=== PATIENT | female | born 1960 | race Caucasian/White ===

== ENCOUNTER 2019-11-06 09:58 | Emergency (ER) | payer BC, SELFPAY ==
[2019-11-06 10:04] VITALS: BP 189/114; PULSE 74; RESP 74; TEMP 37.2; O2SAT 98; BMI 28.7
--- NOTE | 2019-11-06 10:13 | XRR_ITS ---
PROCEDURE INFORMATION: Exam: XR Chest, 1 View Exam date and time: 11/06/2019 10:41 AM Age: 59 years old Clinical indication: Cough and dyspnea and fever; Additional info: Dyspnea/cough/fever TECHNIQUE: Imaging protocol: XR of the chest Views: 1 view. COMPARISON: No relevant prior studies available. FINDINGS: Lungs: Lungs are well aerated without a focal area of consolidation. Pleural space: Unremarkable. No pleural effusion. No pneumothorax. Heart/Mediastinum: The cardiac silhouette appears enlarged, some of which is magnification related to the AP projection. Bones/joints: Prior trauma right clavicle XR/XR chest 1V portable [id number] IMPRESSION: Lungs are well aerated without a focal area of consolidation.
--- NOTE | 2019-11-06 10:13 | ECG_ITS ---
[facility] Test Date: 2019-11-06 Pat Name: Stephanie Rosa Department: Room: Gender: Female Counterperson: : 1960 Requested By: Tone Bolden Order Number: [id number] Shasha MD: Anna Rosenberg M.D. Measurements Intervals [place] Rate: 66 P: 69 UT: 163 QRS: 68 QRSD: 82 T: 69 QT: 425 QTc: 446 Interpretive Statements SINUS RHYTHM No previous ECG available for comparison Electronically Signed On 11-06-2019 19:41:57 CDT by Anna Rosenberg M.D. [id number]
--- NOTE | 2019-11-06 10:14 | ED_ITS ---
HPI - General Adult General: Chief complaint: General Medical Stated complaint: sick since 10/27 Time Seen by Provider: 11/06/19 10:05 History of Present Illness: HPI narrative: 51-year-old female presents emergency room with complaint of cough myalgias headache she does not have any GI symptoms at all. She has had this for the last 9 days. She has been seen twice was started on antibiotics and steroids. She continues to actually worsen rather than improve. She was seen again in the last couple of days and they increased her steroids and change her antibiotics at both visits she was tested with an antibody test for COVID which was negative. Onset (ago): week(s) Location: chest Radiation: non-radiation Severity: moderate Relieving factors: none Associated symptoms: Reports cough, decreased appetite, dyspnea, fevers/chills, malaise, nausea, short of breath and weakness; Deny chest pain, confusion, diaphoresis, headache(s) or rash Treatments prior to arrival: none Review of Systems Const: Reports: malaise; Denies: diaphoresis ENMT: Denies: throat pain, ear or mastoid pain, nasal discharge or nasal congestion Card: Denies: chest pain Resp: Reports: dyspnea GI: Reports: nausea : Denies: flank pain, difficulty voiding, dysuria, urinary frequency or urinary urgency Skin/Breast: Denies: rash or pruritus Neuro: Denies: headache(s) or confusion PFS ED PFSH: Medical History (Updated 11/06/19 @ 12:09 by Tone Longo DO) Hypertension Physical Exam Const: COMMON NORMALS: no acute distress GENERAL APPEARANCE: cooperative and comfortable ORIENTATION/CONSCIOUSNESS: Yes awake, Yes oriented to person, Yes oriented to place and Yes oriented to time HENMT: COMMON NORMALS: normocephalic, atraumatic and hearing grossly normal bilaterally HEAD & SCALP: normocephalic and atraumatic Eye: COMMON NORMALS: Equal, round and reactive pupils present, EOMs intact bilaterally, conjunctivae normal and no scleral icterus CONJUNCTIVA: Yes conjunctivae normal PUPIL: Yes Equal, round and reactive pupils present Neck/C-Spine: COMMON NORMALS: no JVD Resp: AUSCULTATION: rhonchi (Bases bilaterally) and wheezes Cardio: COMMON NORMALS: no JVD, regular rate, regular rhythm and No murmurs present (Cardio) RATE: regular rate RHYTHM: regular rhythm GI: COMMON NORMALS: Soft to palpation and No hepatosplenomegaly present AUSCULTATION: Yes normoactive bowel sounds PALPATION: Yes Soft to palpation, No Tenderness to palpation present (GI), No Guarding due to palpation present (GI) and Yes No hepatosplenomegaly present Extremity: COMMON NORMALS: normal to inspection, capillary refill normal, no clubbing, cyanosis or edema, no calf tenderness and no pedal edema Neuro: SENSORIUM/ORIENTATION: Yes oriented to person, Yes oriented to place and Yes oriented to time Skin: COMMON NORMALS: no rashes or lesions noted GENERAL SKIN EXAM: no rashes or lesions noted Course Vital Signs: Vital signs: Vital Signs Temperature 98.9 F 11/06/19 10:04 Pulse Rate 70 11/06/19 12:30 Respiratory Rate 14 11/06/19 12:30 Blood Pressure 140/97 11/06/19 12:30 Pulse Oximetry 95 11/06/19 12:30 MDM - General Adult MDM Narrative: Medical decision making narrative: Strongly suspect patient has COVID-19 will go ahead and discharge her recommend continued quarantine at home until the results are available. If she gets worse she should return immediately Lab Data: Labs: Lab Results 11/06/19 11/06/19 11/06/19 Range/Units 11:09 11:09 11:09 WBC (4.0-10.0) 10^3/ uL RBC (4.1-5.3) 10^6/u L Hgb (11.5-15.3) g/dL Hct (37.0-47.0) % MCV (81-99) fL MCH (28.0-34.0) pg MCHC (30.0-36.0) g/dL RDW (12.1-15.1) % Plt Count (130-400) 10^3/c mm MPV (7.4-10.4) fL Neut % (Auto) % Lymph % (Auto) % Elbert % (Auto) % Eos % (Auto) % Baso % (Auto) % Neut # (Auto) (1.8-7.7) 10^3/u L Lymph # (Auto) (0.8-4.8) 10^3/u L Elbert # (Auto) (0.2-0.9) 10^3/u L Eos # (Auto) (0.0-0.8) 10^3/u L Baso # (Auto) (0.0-0.1) 10^3/u L Nucleated RBC % (a uto) % Nucleated RBCs # /100WBC Fibrinogen 371 (174-498) mg/dL D-Dimer 1.66 H (0-0.59) ug/mIFE U Sodium 136 (136-145) mmol/L Potassium 4.0 (3.5-5.1) mmol/L Chloride 97 L (98-107) mmol/L Carbon Dioxide 27 (22-29) mmol/L Anion Gap 16.0 (5-19) BUN 21 H (6-20) mg/dL Creatinine 0.8 (0.5-0.9) mg/dL GFR Calculation 73.7 L (90-130) mL/min Glucose 173 H (65-115) mg/dL Calculated Osmolal ity 283 L (285-295) mOsm/k g Lactic Acid 1.4 (0.5-2.2) mmol/L Calcium 9.8 (8.5-10.5) mg/dL Total Bilirubin 1.4 H (0.15-1.2) mg/dL AST 53 H (0-32) U/L ALT 74 H (0-33) U/L Alkaline Phosphata se 87 (35-105) IU/L Lactate Dehydrogen ase 228 H (135-214) U/L Total Protein 7.1 (6.6-8.7) g/dL Albumin 4.5 (3.5-5.2) g/dL Globulin 2.6 (1.3-4.6) g/dL SARS-CoV-2 RNA (RT -PCR) (NOT DETECTED) 11/06/19 11/06/19 Range/Units 11:09 11:09 WBC 7.1 (4.0-10.0) 10^3/ uL RBC 4.01 L (4.1-5.3) 10^6/u L Hgb 13.1 (11.5-15.3) g/dL Hct 39.6 (37.0-47.0) % MCV 98.8 (81-99) fL MCH 32.7 (28.0-34.0) pg MCHC 33.1 (30.0-36.0) g/dL RDW 12.2 (12.1-15.1) % Plt Count 212 (130-400) 10^3/c mm MPV 10.6 H (7.4-10.4) fL Neut % (Auto) 85.4 % Lymph % (Auto) 11.8 % Elbert % (Auto) 1.4 % Eos % (Auto) 0.0 % Baso % (Auto) 0.3 % Neut # (Auto) 6.05 (1.8-7.7) 10^3/u L Lymph # (Auto) 0.8 (0.8-4.8) 10^3/u L Elbert # (Auto) 0.1 L (0.2-0.9) 10^3/u L Eos # (Auto) 0.0 (0.0-0.8) 10^3/u L Baso # (Auto) 0.0 (0.0-0.1) 10^3/u L Nucleated RBC % (a uto) 0 % Nucleated RBCs # 0.0 /100WBC Fibrinogen (174-498) mg/dL D-Dimer (0-0.59) ug/mIFE U Sodium (136-145) mmol/L Potassium (3.5-5.1) mmol/L Chloride (98-107) mmol/L Carbon Dioxide (22-29) mmol/L Anion Gap (5-19) BUN (6-20) mg/dL Creatinine (0.5-0.9) mg/dL GFR Calculation (90-130) mL/min Glucose (65-115) mg/dL Calculated Osmolal ity (285-295) mOsm/k g Lactic Acid (0.5-2.2) mmol/L Calcium (8.5-10.5) mg/dL Total Bilirubin (0.15-1.2) mg/dL AST (0-32) U/L ALT (0-33) U/L Alkaline Phosphata se (35-105) IU/L Lactate Dehydrogen ase (135-214) U/L Total Protein (6.6-8.7) g/dL Albumin (3.5-5.2) g/dL Globulin (1.3-4.6) g/dL SARS-CoV-2 RNA (RT -PCR) Not detected (NOT DETECTED) Discharge Plan Discharge Patient Disposition: Home Clinical Impression: Suspected COVID-19 virus infection Condition: Stable Prescriptions: No Action Multiple Vitamins Tablet 1 tab PO DAILY RF: 0 levothyroxine 175 mcg tablet See Rx Instructions .ROUTE .COMPLEX RF: 0 doxycycline hyclate 100 mg capsule 100 mg PO BID RF: 0 azithromycin 250 mg tablet See Rx Instructions .ROUTE .COMPLEX RF: 0 metoprolol succinate 50 mg tablet extended release 24 hr 50 mg PO DAILY RF: 0 prednisone 20 mg tablet See Rx Instructions .ROUTE .COMPLEX RF: 0 levothyroxine 150 mcg tablet See Rx Instructions .ROUTE .COMPLEX RF: 0 lisinopril-hydrochlorothiazide 20-25 mg tablet 1 tab PO DAILY RF: 0 fluoxetine 20 mg capsule 60 mg PO DAILY RF: 0 naproxen 500 mg tablet 500 mg PO BID PRN (Reason: Pain) RF: 0 Mucinex 1 tab PO PRN RF: 0 Tussin DM 10 ml PO PRN RF: 0 Discharge Orders: Discharge Order (Routine); Ordered 11/06/19 Ordered By: Tone Longo Discharge Diet: Usual diet Discharge Activity: Limit activity as instructed Activity Restrictions/Additional Instructions: Tested for COVID-19. The testing will take approximately 48 to 72 hours to result. Recommend that you self quarantine until the results are available continue the previously prescribed antibiotics and steroids. Discharge Date/Time: 11/06/19 12:30 Coding Level of Care Code ED Principal Administrative Clerk for [employer] Fwd Exam Comprehensive
[2019-11-06 11:16] LABS: Basophils % 0.3 %; Hematocrit 39.6 % (37.0-47.0); Hemoglobin 13.1 g/dL (11.5-15.3); Lymphocytes # 0.8 10^3/uL (0.8-4.8); Lymphocytes % 11.8 %; Mean Corpuscular HGB Conc 33.1 g/dL (30.0-36.0); Mean Corpuscular Hemoglobin 32.7 pg (28.0-34.0); Mean Corpuscular Volume 98.8 fL (81-99); Mean Platelet Volume 10.6 fL (7.4-10.4); Monocytes # 0.1 10^3/uL (0.2-0.9); Monocytes % 1.4 %; Neutrophils # 6.05 10^3/uL (1.8-7.7); Neutrophils % 85.4 %; Nucleated Red Blood Cells % 0 %; Platelet Count 212 10^3/cmm (130-400); Red Blood Count 4.01 10^6/uL (4.1-5.3); Red Cell Distribution Width 12.2 % (12.1-15.1); White Blood Count 7.1 10^3/uL (4.0-10.0)
[2019-11-06 11:29] LABS: Fibrinogen 371 mg/dL (174-498)
[2019-11-06 11:30] VITALS: BP 132/102; PULSE 71; RESP 14; O2SAT 95
[2019-11-06 11:32] LABS: D Dimer 1.66 ug/mIFEU (0-0.59)
[2019-11-06 11:33] LABS: Alanine Aminotransferase 74 U/L (0-33); Albumin Level 4.5 g/dL (3.5-5.2); Alkaline Phosphatase 87 IU/L (35-105); Aspartate Amino Transferase 53 U/L (0-32); Blood Urea Nitrogen 21 mg/dL (6-20); Calcium 9.8 mg/dL (8.5-10.5); Carbon Dioxide 27 mmol/L (22-29); Chloride 97 mmol/L (98-107); Globulin 2.6 g/dL (1.3-4.6); Glomerular Filtration Rate 73.7 mL/min (90-130); Glucose 173 mg/dL (65-115); Lactate Dehydrogenase 228 U/L (135-214); Lactic Sepsis W/Reflex 1.4 mmol/L (0.5-2.2); Osmolality Calculated 283 mOsm/kg (285-295); Sodium 136 mmol/L (136-145); Total Bilirubin 1.4 mg/dL (0.15-1.2); Total Protein 7.1 g/dL (6.6-8.7)
[2019-11-06 12:30] VITALS: BP 140/97; PULSE 70; RESP 14; O2SAT 95
[2019-11-07 18:23] LABS: Quest SARS-CoV-2 RNA NOT DETECTED (NOT DETECTED)
--- NOTE | 2019-11-08 08:26 | PC.NURSE ---
Pt notified of negative COVID
== END 2019-11-06 12:30 | disposition home or self-care (01) ==
PROVIDERS: Emergency Provider Family Medicine
DX: R05 Cough (principal); R51 Headache; M79.10 Myalgia, unspecified site; I10 Essential (primary) hypertension
CPT/HCPCS: 12345; 71045; 80053; 83605; 83615; 85025; 85378; 85384; 87040; 87635; 93005; 99282; 99283

== ENCOUNTER 2020-02-22 01:11 | Emergency (ER) | payer SELFPAY ==
[2020-02-22 01:20] VITALS: BP 180/101; PULSE 86; RESP 19; TEMP 36.8; O2SAT 95; BMI 28.7
--- NOTE | 2020-02-22 01:37 | XRR_ITS ---
PROCEDURE INFORMATION: Exam: XR Chest, 1 View Exam date and time: 02/22/2020 1:41 AM Age: 60 years old Clinical indication: Cough TECHNIQUE: Imaging protocol: XR of the chest Views: 1 view. COMPARISON: CR XR chest 1V portable [id number] 11/06/2019 10:42 AM FINDINGS: Lungs: Unremarkable. No consolidation. Pleural space: Unremarkable. No pleural effusion. No pneumothorax. Heart/Mediastinum: Cardiomegaly. Bones/joints: Unremarkable. XR/XR chest 1V portable [id number] IMPRESSION: Cardiomegaly, negative for infiltrate
--- NOTE | 2020-02-22 01:38 | W.ED.SOB ---
HPI - SOB/Dyspnea General: Chief Complaint: Shortness of Breath/Dyspnea Stated Complaint: Cough/SOB,high bp Time Seen by Provider: 02/22/20 01:33 Source: patient Mode of arrival: ambulatory Limitations: no limitations History of Present Illness: HPI Narrative: Stephanie is a very nice 60-year-old female who comes in complaining of cough and congestion. She states her symptoms began 1 week ago and have continued. She has a sore throat but denies any fever. Her cough is productive of yellow-green sputum. Patient states when she lays flat she feels more drainage on the back of her throat she gets more short of breath but this is secondary to the worsening cough. Denies any chest pain. Denies any diaphoresis or nausea or vomiting. Associated symptoms: Deny abdominal pain, chest congestion, chest pain, diaphoresis, dizziness, extremity pain, fever(s), hemoptysis, lightheadedness, nausea, orthopnea, palpitations, syncope or vomiting Review of Systems Const: Denies: fever(s), chills, body aches, fatigue, malaise or diaphoresis Eyes: Denies: change in vision, blurry vision, photophobia, eye discomfort, eye discharge, eye redness or yellow eyes ENMT: Denies: throat pain, odynophagia, hoarseness, swelling of lips/tongue, ear or mastoid pain, ear discharge, change in hearing or nasal discharge Card: Denies: chest pain, palpitations, irregular heart rhythm, edema, lightheadedness, syncope, pre-syncope, dyspnea on exertion or orthopnea Resp: Denies: dyspnea, productive cough, non-productive cough, wheezing, hemoptysis or chest congestion GI: Denies: abdominal pain, nausea, vomiting, hematemesis, coffee ground emesis, heartburn, diarrhea, constipation, GI cramping, hematochezia or melena : Denies: flank pain, dysuria, urinary frequency, urinary urgency or hematuria Musc: Denies: neck pain, back pain, extremity pain, extremity swelling, joint pain, joint swelling, joint redness, joint warmth or joint stiffness Skin/Breast: Denies: rash, pruritus, erythema, skin pain or skin tenderness Neuro: Denies: headache(s), numbness in extremities, weakness in extremities, sensory changes, lack of coordination, difficulty walking, dizziness, vertigo, confusion, Slurred speech present or seizure-like activity Isauro/Lymph: Denies: easy bruising, easy bleeding, petechiae, purpura or enlarged lymph nodes All/Imm: Denies: urticaria, throat swelling, tongue swelling, facial swelling or acute wheezing PFSH ED PFSH: Medical History Hypertension Physical Exam Const: COMMON NORMALS: no acute distress, patient oriented x3, no limitations and alert GENERAL APPEARANCE: cooperative HENMT: COMMON NORMALS: normocephalic, atraumatic, external ears normal, EAC's normal and Normal external nose present HEAD & SCALP: normal to inspection, normocephalic and atraumatic FACE & SINUS: normal facial exam and face symmetric NOSE: Normal external nose present and Normal nares present EXTERNAL EAR: Yes external ears normal EXTERNAL AUDITORY CANAL: EAC's normal MOUTH: Normal oral and palatal mucosa present, lip normal and tongue normal Eye: COMMON NORMALS: Equal, round and reactive pupils present and conjunctivae normal GENERAL EYE: appearance normal, both eyes and all related structures ALIGNMENT: Yes alignment normal PERIORBITAL: periorbital findings normal EYELID: eyelids normal CONJUNCTIVA: Yes conjunctivae normal SCLERA: sclerae normal PUPIL: Yes Equal, round and reactive pupils present Neck/C-Spine: COMMON NORMALS: full ROM, no lymphadenopathy, supple, no meningeal signs and no JVD GENERAL: Yes normal visual inspection and Yes trachea midline Chest: COMMONS NORMALS: normal inspection of the chest and normal palpation of entire chest wall Resp: COMMON NORMALS: normal respiratory effort, No retractions, No use of accessory muscles and clear to auscultation bilaterally EFFORT & INSPECTION: Yes able to speak in complete sentences and Yes symmetric chest movement AUSCULTATION: clear to auscultation bilaterally, no crackles, no rales, no rhonchi and no wheezes Cardio: COMMON NORMALS: no JVD, regular rate, regular rhythm, S1 normal heart sound present and S2 normal heart sound present RATE: regular rate RHYTHM: regular rhythm HEART SOUNDS: S1 normal heart sound present, S2 normal heart sound present, no click, no gallops, no murmurs and no rubs GI: COMMON NORMALS: Soft to palpation and No hepatosplenomegaly present PALPATION: Yes Soft to palpation, No Tenderness to palpation present (GI), No Guarding due to palpation present (GI), No Rigid due to palpation, Yes No hepatosplenomegaly present, No Hernia present, No Palpable mass present and No Pulsatile mass present : COMMON NORMALS: Yes no CVA tenderness BLADDER/KIDNEY EXAM: Yes no CVA tenderness EXTERNAL FEMALE EXAM: No Hernia present Back/Pelvis: COMMON NORMALS: no CVA tenderness, thoracic and lumbar spine normal to inspection, no thoracic nor lumbar tenderness and thoraco-lumbar ROM normal Extremity: COMMON NORMALS: normal to inspection, full ROM, capillary refill normal, no joint enlargement, no clubbing, cyanosis or edema and no calf tenderness Neuro: COMMON NORMALS: patient oriented x3, CN's II-XII intact bilaterally, moves all extremities, no focal motor deficits and no sensory deficits noted SENSORIUM/ORIENTATION: Yes alert MENINGEAL SIGNS: Yes no meningeal signs SPEECH: speech normal Psych: COMMON NORMALS: mental status grossly normal, Normal thought process present, cooperative, normal affect, speech normal and activity/motor behavior normal SPEECH: Yes normal speech THOUGHT PROCESS: Normal thought process present Skin: COMMON NORMALS: no rashes or lesions noted, turgor normal, no jaundice, no petechiae and no mottling GENERAL SKIN EXAM: no rashes or lesions noted and turgor normal Course Vital Signs: Vital signs: Vital Signs Temperature 98.1 F 02/22/20 04:24 Pulse Rate 107 H 02/22/20 04:24 Respiratory Rate 17 02/22/20 04:24 Blood Pressure 158/79 02/22/20 04:24 Pulse Oximetry 95 02/22/20 04:24 MDM - SOB/Dyspnea MDM Narrative: Medical decision making narrative: Patient's Covid and flu test are negative. I have a low suspicion for Covid at this point. Patient will need to be covered for bronchospasm. She is feeling tremendously better after a nebulizing treatment here. Patient agrees to return should her symptoms change or worsen. I see no evidence of acute coronary syndrome, pneumonia, large or any other acute focal life-threatening infection. Lab Data: Labs: Lab Results 02/22/20 02/22/20 Range/Units 02:04 02:04 Influenza Type A A g Negative (Negative) Influenza Type B A g Negative (Negative) SARS-CoV-2 Ag (Rap id) Negative (Negative) Imaging Data^: CXR: Attestation: I personally reviewed and interpreted this imaging study as follows: My impression: No acute cardiopulmonary findings. No cardiomegaly. No pulmonary vascular congestion. No focal infiltrates. Discharge Plan Discharge Patient Disposition: Home Clinical Impression: Bronchitis Condition: Stable Prescriptions: New prednisone 10 mg tablet 20 mg PO TID 5 Days Qty: 30 RF: 0 doxycycline hyclate 100 mg capsule 100 mg PO BID 10 Days Qty: 20 RF: 0 Tessalon Perles 100 mg capsule 200 mg PO TID PRN (Reason: cough) Qty: 60 RF: 0 albuterol sulfate 90 mcg/actuation HFA aerosol inhaler 2 inh INHALATION Q4H PRN (Reason: shortness of breath or wheezing) Qty: 6.7 RF: 0 No Action Multiple Vitamins Tablet 1 tab PO DAILY RF: 0 levothyroxine 175 mcg tablet See Rx Instructions .ROUTE .COMPLEX RF: 0 doxycycline hyclate 100 mg capsule 100 mg PO BID RF: 0 azithromycin 250 mg tablet See Rx Instructions .ROUTE .COMPLEX RF: 0 metoprolol succinate 50 mg tablet extended release 24 hr 50 mg PO DAILY RF: 0 prednisone 20 mg tablet See Rx Instructions .ROUTE .COMPLEX RF: 0 levothyroxine 150 mcg tablet See Rx Instructions .ROUTE .COMPLEX RF: 0 lisinopril-hydrochlorothiazide 20-25 mg tablet 1 tab PO DAILY RF: 0 fluoxetine 20 mg capsule 60 mg PO DAILY RF: 0 naproxen 500 mg tablet 500 mg PO BID PRN (Reason: Pain) RF: 0 Mucinex 1 tab PO PRN RF: 0 Tussin DM 10 ml PO PRN RF: 0 Discharge Orders: Discharge ED (Routine); Ordered 02/22/20 Ordered By: Marcelle Ayala Referrals: Carlos Beach MD [Physician] - 1-3 days Discharge Diet: Advance as tolerated Discharge Activity: Increase activity as tolerated Patient Instructions: Acute Bronchitis (ED) Activity Restrictions/Additional Instructions: Please return to the ER immediately for any of the signs or symptoms listed on your discharge instruction sheets, worsening/changing of your symptoms, you are not getting better as quickly as expected, or for ANY other cause or concerns. Coding Level of Care Code ED Software Implementation Project Manager for [employer] Fwd Exam Comprehensive
[2020-02-22 02:06] VITALS: BP 183/106; PULSE 76; RESP 17; O2SAT 95
[2020-02-22] MEDS: benzonatate 100 mg Capsule 200 MG PO (02:37)
[2020-02-22 03:02] VITALS: PULSE 90; RESP 17; O2SAT 98
[2020-02-22] MEDS: ipratropium-albuterol 3 mL Neb 9 ML INHALATION (03:02)
[2020-02-22 03:05] VITALS: PULSE 98
[2020-02-22 03:13] LABS: Influenza A by IFA Negative (Negative); Influenza B by IFA Negative (Negative); SARS Covid-2 Antigen Negative (Negative)
[2020-02-22] MEDS: promethazine-cod syrup 6.25-10mg/5 mL UDC 10 ML PO (04:22)
[2020-02-22 04:24] VITALS: BP 158/79; PULSE 107; RESP 17; TEMP 36.7; O2SAT 95
== END 2020-02-22 04:24 | disposition home or self-care (01) ==
PROVIDERS: Emergency Provider Emergency Medicine
DX: J40 Bronchitis, not specified as acute or chronic (principal); I10 Essential (primary) hypertension
CPT/HCPCS: 12345; 71045; 87426; 87804; 94640; 99281; 99283

== ENCOUNTER 2020-04-16 10:02 | Outpatient (CLI) | payer OTHER, SELFPAY ==
--- NOTE | 2020-04-16 10:07 | MM_ITS ---
WS: [id number] BILATERAL DIGITAL SCREENING MAMMOGRAPHY WITH CAD CLINICAL INFORMATION: SCREENING HISTORY: Screening mammogram. No current complaints. COMPARISON: None. TECHNIQUE: Bilateral CC and MLO views. FINDINGS: Scattered fibroglandular densities bilaterally. Ovoid asymmetric density right breast near the 12:00 position measuring 7 mm. Recommend right diagnostic mammography and ultrasound. Additional asymmetric density inferior quadrant left breast near the 6:00 position. Recommend diagnos tic mammography and ultrasound. MM/[place] [id number] IMPRESSION: BI-RADS: 0-Incomplete: Need additional imaging evaluation FOLLOW UP: Need Additional Imaging RECOMMEND BILATERAL DIAGNOSTIC MAMMOGRAPHY AND ULTRASOUND.
== END 2020-04-16 10:03 | disposition home or self-care (01) ==
LOC: RADSHAW 10:05
PROVIDERS: Visit Provider Family Medicine
DX: Z12.31 Encounter for screening mammogram for malignant neoplasm of breast (principal)
CPT/HCPCS: 77067

== ENCOUNTER → 2020-04-22 11:44 | Outpatient (BNVA) | payer SELFPAY | PROVIDERS: PCP Family Medicine; Referring Provider Family Medicine; Visit Provider Specialist | DX: M25.552 Pain in left hip (principal); M16.12 Unilateral primary osteoarthritis, left hip | CPT/HCPCS: 73502 ==

== ENCOUNTER 2020-05-12 10:47 | Outpatient (CLI) | payer OTHER, SELFPAY ==
--- NOTE | 2020-05-12 11:00 | MR_ITS ---
WS: [id number] MRI OF THE LEFT HIP WITHOUT AND WITH GADOLINIUM ENHANCEMENT. INDICATION: Avascular necrosis TECHNIQUE: Axial T1 and T2 coronal T1 and STIR sagittal T2 fat sat T1 post gadolinium imaging was obt ained. FINDINGS: Advanced osteoarthritis left hip with [id number] articulation superolateral joint compart ment. Hypertrophic changes along the joint line. Subchondral sclerosis and subchondral cystic change involving the femoral head and adjacent superior lateral acetabulum. Serpiginous low-attenuation sign al abnormality involving the femoral head consistent with avascular necrosis in the superolateral fem oral head and adjacent acetabulum. Associated T2 hyperintensity and enhancement. Additional focus of avascular necrosis involving the anterior medial femoral head. No significant subchondral collapse. Moderate degenerative arthritis right hip. Normal pubic rami. Normal pelvic soft tissues. MR/MR hip LT wo/w con [id number] IMPRESSION: 1. Advanced osteoarthritis left hip with avascular necrosis as described above . 2. Moderate degenerative arthritis right hip with normal bone marrow signal. 3. Normal pubic rami. 4. Normal bone marrow signal in the sacrum. No sacral insufficiency fractures.
[2020-05-12] MEDS: gadobenate dimeglumine 20 mL vial IV (11:39)
== END 2020-05-12 10:48 | disposition home or self-care (01) ==
LOC: RADSHAW 10:51
PROVIDERS: PCP Family Medicine; Visit Provider Specialist
DX: M16.0 Bilateral primary osteoarthritis of hip (principal)
CPT/HCPCS: 73723; A9577

== ENCOUNTER 2020-05-14 09:10 | Outpatient (CLI) | payer SELFPAY ==
--- NOTE | 2020-05-14 09:12 | MM_ITS ---
WS: [id number] BILATERAL DIGITAL DIAGNOSTIC MAMMOGRAM MAMMOGRAPHY WITH CAD CLINICAL INFORMATION: BREAST ASYMMETRY COMPARISON: April 16, 2020 TECHNIQUE: Bilateral CC, MLO, and ML views. FINDINGS: Scattered fibroglandular densities bilaterally. Persistent ovoid asymmetric density right breast near the 12:00 position measuring 7 mm. Ultrasound is pending. Previously described asymmetric density inferior quadrant left breast near the 6 clock position repre sent moles with appropriate mole markers placed today. ULTRASOUND BREAST RIGHT TECHNIQUE: Ultrasound right breast focused area of concern. CLINICAL INFORMATION: BREAST ASYMMETRY COMPARISON: None. FINDINGS: Ultrasound right breast at the 12:00 position 3 cm from the nipple. There is a ovoid solid hypoechoic lesion measuring approximately 8.7 x 4.5 x 7.5 mm. This is suspicious and recommend further evaluati on with ultrasound-guided biopsy. MM/[place] [id number] IMPRESSION: BI-RADS: 4-Suspicious Finding-Biopsy Should Be Considered FOLLOW UP: US Guided Biopsy Recommended RECOMMEND ULTRASOUND-GUIDED BIOPSY RIGHT BREAST LESION
== END 2020-05-14 09:11 | disposition home or self-care (01) ==
LOC: RADSHAW 09:11
PROVIDERS: PCP Family Medicine; Visit Provider Family Medicine
DX: N64.89 Other specified disorders of breast (principal); N63.15 Unspecified lump in the right breast, overlapping quadrants
CPT/HCPCS: 76642; 77066

== ENCOUNTER → 2020-05-20 10:31 | Outpatient (BNVA) | payer SELFPAY | PROVIDERS: PCP Family Medicine; Visit Provider Specialist | DX: Z01.812 Encounter for preprocedural laboratory examination (principal); Z20.822 Contact with and (suspected) exposure to COVID-19 | CPT/HCPCS: 87635 ==

== ENCOUNTER 2020-05-26 14:03 | Observation (INO) | payer OTHER, SELFPAY ==
[2020-05-19 10:22] VITALS: BMI 28.7
--- NOTE | 2020-05-19 10:46 | ANES.PREANE2 ---
Pre-Anesthetic Assessment Pre-Anesthetic Assessment: Height/Weight: Height 1.78 m Weight 90.718 kg Preop Diagnosis: hip pain Proposed Procedure: Operation Date: 05/26/20 10:40 Proposed Procedures p Total Hip Arthroplasty 24095(Right) - Stephanie Perez MD Familial anesthetic complications: None Social: Social History: No alcohol and No tobacco Exam: Pre-Anes Outpt Exam: alert, oriented x 3, clear to auscultation bilaterally and regular rate & rhythm Airway: Cervical ROM: WNL MP: 4 Dentition: Other (missing) Additional comments: small mouth opening Pulmonary: Pulmonary: Asthma and COPD (chronic bronchitis) CV/HEM: CV/HEM: HTN GI: GI: GERD Metabolic: Metabolic: Thyroid Neuropsych: Neuropsych: Depression Anesthetic Plan: ASA status: 2 Anesthesia: General Risk of > 500 ml blood loss (7ml/kg in children): No PFSH Anesthesia PFSH: Medical History Hypertension Social History (Updated 05/18/20 @ 11:35 by Jadyn Hester LPN) Smoking and tobacco status: never smoked Alcohol intake: current Alcohol intake frequency: holidays/special occasions only Data Anesthesia Cardiac Studies: No Data to Display
[2020-05-19 11:08] LABS: Basophils % 0.8 %; Eosinophils # 0.2 10^3/uL (0.0-0.8); Lymphocytes # 1.2 10^3/uL (0.8-4.8); Lymphocytes % 23.5 %; Mean Corpuscular HGB Conc 33.3 g/dL (30.0-36.0); Mean Corpuscular Hemoglobin 32.7 pg (28.0-34.0); Monocytes # 0.4 10^3/uL (0.2-0.9); Monocytes % 7.6 %; Neutrophils # 3.21 10^3/uL (1.8-7.7); Neutrophils % 63.7 %; Nucleated Red Blood Cells % 0 %; Platelet Count 208 10^3/cmm (130-400); Red Blood Count 3.98 10^6/uL (4.1-5.3); Red Cell Distribution Width 11.1 % (12.1-15.1)
[2020-05-19 11:51] LABS: Anion Gap 13.2 (5-19); Blood Urea Nitrogen 24 mg/dL (6-20); Calcium 9.8 mg/dL (8.5-10.5); Carbon Dioxide 27 mmol/L (22-29); Chloride 100 mmol/L (98-107); Glomerular Filtration Rate 85.6 mL/min (90-130); Glucose 103 mg/dL (65-115); Osmolality Calculated 286 mOsm/kg (285-295); Potassium 4.2 mmol/L (3.5-5.1); Sodium 136 mmol/L (136-145)
[2020-05-26] VITALS (18 sets, daily range): BP systolic 99–118; BP diastolic 57–90; PULSE 60–91; RESP 16–20; TEMP 36.1–36.6; O2SAT 91–100
--- NOTE | 2020-05-26 10:16 | P.ANESUD_ITS ---
Pre-Anesthetic Update Pre-Anesthetic Assessment: Date of Surgery/Procedure: 05/26/20 Preop Aga gnosis: Osteonecrosis and osteoarthritis left hip Proposed Procedure: Operation Date: 05/26/20 11:45 Proposed Procedures p Total Hip Arthroplasty 04229(Right) - Stephanie Perez MD Any changes to Pre-Anesthetic Assessment?: No Last Intake: Intake Last Liquid Date 05/25/20 Last Liquid Time 22:30 Last Solid Date 05/25/20 Last Solid Time 20:00 Vitals: Temperature 97.3 F L 05/26/20 10:13 Temperature Source Temporal Artery S can 05/26/20 10:13 Pulse Rate 70 05/26/20 10:13 Pulse Rhythm 05/26/20 10:03 Pulse Strength 3+ Normal 05/26/20 10:03 Respiratory Rate 18 05/26/20 10:13 Blood Pressure 112/68 05/26/20 10:13 Blood Pressure Dora n 82 05/26/20 10:13 Pulse Oximetry 96 05/26/20 10:13 Oxygen Delivery Me thod 05/26/20 10:13 Exam: Pre-Anes Outpt Exam: alert, oriented x 3, clear to auscultation bilaterally and regular rate & rhythm Cardiac Studies: No Data to Display
--- NOTE | 2020-05-26 10:19 | P.HPUD_ITS ---
Surgery/Procedure H&P Update DATE OF PROCEDURE: May 26, 2020 DATE H&P PERFORMED: 05/18/20 H&P UPDATE INFORMATION: I have reviewed H&P completed within last 30 days, I have examined patient prior to procedure, No changes to prior documentation and H[place] is [place] [facility] date indicated PREOP DIAGNOSIS: Osteonecrosis and osteoarthritis left hip PLANNED PROCEDURE: Operation Date: 05/26/20 11:45 Proposed Procedures p Total Hip Arthroplasty 83458(Left) - Stephanie Perez MD Related Problem List Diagnoses (1) Avascular necrosis of bone of left hip: (2) Primary localized osteoarthritis of left hip:
[2020-05-26] MEDS: acetaminophen 1,000 MG/100 ML PIGGYBACK 400 MG IV ×2 (10:40→17:53)
[2020-05-26] MEDS: midazolam 1 mg/mL INJ 2 mL 2 MG IVP (10:56)
[2020-05-26] MEDS: CELEcoxib 200 mg Capsule 400 MG PO (10:56)
[2020-05-26] MEDS: vancomycin 1,000 MG in sodium chloride 0.9% 250 ML 250 MG IV (10:57)
[2020-05-26] MEDS: sodium chloride 0.9% 1,000 ML 30 ML IV (10:57)
[2020-05-26] MEDS: vancomycin 1,000 MG SDV 1000 MG XX (11:55)
[2020-05-26] MEDS: vancomycin 1,000 MG SDV 1000 MG IRRIGATION (11:56)
--- NOTE | 2020-05-26 14:19 | XRR_ITS ---
PROCEDURE INFORMATION: Exam: XR Pelvis Exam date and time: 05/26/2020 2:21 PM Age: 60 years old Clinical indication: Device placement; Other: Left total hip arthroplasty; Prior surgery; Surgery date: Post-operative (0-2 days); Additional info: Status post left total hip arthroplasty TECHNIQUE: Imaging protocol: XR pelvis. Views: 1 or 2 view. COMPARISON: CR XR hip LT 2-3V wo/w pel* [id number] 04/22/2020 11:50 AM FINDINGS: Bones/joints: Interval left total hip replacement. Soft tissues: Soft tissue emphysema lateral to the left hip consistent with recent surgery. XR/XR pelvis 1-2V* [id number] IMPRESSION: 1. Interval left total hip replacement. 2. Soft tissue emphysema lateral to the left hip consistent with recent surgery.
--- NOTE | 2020-05-26 14:24 | PM.OP ---
Operative Report Date of procedure: May 26, 2020 Pre-op Diagnosis: Osteonecrosis and osteoarthritis left hip Post-op diagnosis: same Post-op Diagnosis: Contracture left hip Post-op Findings: Severe degenerative osteoarthritis of the left hip with deformity of the femoral head and acetabulum. Large osteophytes circumferentially around the acetabulum Procedure Done: Left total hip arthroplasty Implants: [employer] Accolade II total hip system: The size 54 mm solid back acetabular shell with an E alpha code and an MDM liner size 42 mm inner diameter by E alpha code. An Accolade II size 8 x 127 degree neck angle hip stem, femoral head size 28 mm outer diameter and +0 mm offset inside of an MDM insert size inner diameter 28 mm to match the 42E Specimens removed/disposition: Femoral Head, disposed of Pathology: none sent Surgeon: Stephanie Perez Crusher Loader Equipment Operator: [facility] operating room technicians Anesthesia: General (Intubated, ASA 2) Estimated blood loss (mL): 700 IV fluids (mL): 1,500 Urine output (mL): 100 Complications: None Findings: Severe degenerative osteoarthritic changes with deformity of the femoral head, large osteophytes, and contracture of soft tissue resulting in restricted range of motion. Following the surgical procedure, the hip was stable at 90 degrees of flexion with 60 degrees of internal rotation and 20 degrees of adduction. It was also stable to toe hang and external rotation. There was no impingement noted. Additionally, leg lengths appeared to have been equalized. Condition: stable Disposition: PACU Brief History: This 60-year-old woman presented with complaints of severe left hip pain with significant reduction in range of motion and pain with activities of daily living. She has had significant limitations in her activities of daily living. Risks and complications of surgery were discussed with the patient. She understood and wished to proceed. Consents were signed. Questions were answered. Procedure: Patient was brought to the operating theater. She was transferred to the operating room table and subsequently administered a general anesthetic intubated, ASA 2. Following administration of adequate general anesthesia, intubated, the patient was placed in full lateral position and held in position with a pegboard. The patient's left lower extremity was then prepped and draped in usual fashion utilizing DuraPrep. It was draped free. Following prepping and draping, a surgical pause was performed. At the time of surgical pause, we identified the site and side of surgery. We also identified the patient and preoperative surgical markings. Confirmation was made of equipment availability. Additionally, the patient's preoperative IV antibiotic, vancomycin 2 g and TXA 1 g preoperatively was confirmed as being given in a timely fashion and being the appropriate. A second dose of TXA 1 g was given postoperatively as well. Following the surgical pause, an incision was made centering over the patient's greater trochanter continuing proximally and distally as necessary to allow access to the hip joint. Dissection continued through skin and soft tissues using a scalpel, and hemostasis was obtained using electrocautery. The tensor fascia marc was identified and incised longitudinally. Sciatic nerve was identified and protected throughout the surgical procedure. A Charnley U retractor was placed after the tensor fascia marc had been incised longitudinally, and the sciatic nerve had been identified. The hip had significant limitation in range of motion in nearly all directions. Retractors were placed, and the piriformis muscle was identified and tagged. Piriformis muscle along with the remaining short external rotators were then incised from the posterior aspect of the hip joint. These were retracted posteriorly. The capsule was entered in a T-type fashion with the edges being tagged. Upon entry through the capsule, there were large osteophytes, particularly circumferentially about the acetabulum. The femoral head was noted to be significantly deformed. Appropriate osteotomy was performed of the femoral neck following hip dislocation. We then evaluated the acetabulum. There was significant synovium and thickening within the acetabulum. The femur was retracted anteriorly with difficulty. Soft tissues were retracted, osteophytes were excised, and the labrum was removed. We then began reaming. Reaming was accomplished sequentially. We reamed to a size 53 to allow for a size 54 acetabular shell. The acetabulum was impacted into position. The dome hole was filled with the appropriate metal plug. Also, we confirmed that the acetabular insert was completely seated prior to addressing the femur. After the acetabulum was in appropriate position, we placed the MDM liner without difficulty. The cup was noted to seat nicely and had good fixation upon impact. Attention was directed to the proximal femur. The proximal femur was lifted out of the wound. A canal finder was passed after the box chisel. The reamer was used to lateralize. We then began broaching. We broached sequentially, and placed a size 6 broach in position for trial reduction. A trial reduction was accomplished with a +0 mm femoral head inside the appropriate MDM insert. We felt that we could increase size in the femoral component as well as in the length, therefore, we continued broaching. We subsequently stopped that a size 8 broach which gave us excellent fit and fill. Trial reductions were then accomplished initially with a -4 mm femoral head and subsequently we were able to place a +0 mm offset femoral head inside of the appropriate MDM insert. With this in place, we had the above stabilities, and at that time, we felt that we had acceptable leg lengths. It had been determined preoperatively. Therefore, the +0 mm offset femoral head was chosen. Trial components were removed after the hip was dislocated. The size 8 Accolade II 127 degree neck angle hip stem was impacted into position without difficulty and onto this was placed a +0 mm offset femoral head with the appropriate MDM liner. The hip was then reduced without difficulty. With this construct, we had the above-noted stability. The stem was noted to seat nicely prior to placement of the femoral head. The wound was then copiously irrigated with 20 mL of Betadine and 500 mL of normal saline mixed together. Subsequently, we suctioned this out and irrigated the wound copiously with lactated Ringer's. Following reduction of the prosthesis once again, we confirmed the stability of the hip. Leg lengths were also felt to be satisfactory. Being satisfied with the prosthesis, attention was directed to closure. Closure was accomplished with 0 Vicryl in the capsular tissues. Piriformis was reattached with 0 Vicryl as well. Tensor fascia marc was closed with 0 Vicryl in an interrupted fashion. The subcutaneous tissues were closed with a combination of 1 x 0 Vicryl and 2-0 Monocryl. Vancomycin powder and a Gelfoam thrombin mixture was placed into the wound as well. The skin was closed with a running 3-0 Monocryl followed by Prineo Dermbond and Opsite. The patient was placed in an abduction pillow. She was returned the Recovery Room in a satisfactory condition and will be discharged to the floor for postoperative rehabilitation and pain management. There were no complications. Associated Problem List Diagnoses (1) Avascular necrosis of bone of left hip: (2) Primary localized osteoarthritis of left hip:
[2020-05-26] MEDS: fentaNYL 50 mcg/mL INJ 2mL IVP ×2 (14:31→14:36)
--- NOTE | 2020-05-26 15:19 | SUR.PHASEI ---
1435 PT HAS SENSATION/MOVEMENT TO L. FOOT, PEDAL PULSE PALPATED, CAP REFILL <3 SEC, FIRST ICE APPLIED
[2020-05-26] MEDS: oxyCODONE 5 mg IR Tab/Cap PO ×2 (15:46→21:44)
[2020-05-26] MEDS: mupirocin oint 22 gm 1 APPLIC NASAL (17:47)
[2020-05-26] MEDS: calcium carbonate 500 mg Chew Tablet 1000 MG PO (17:48)
[2020-05-26] MEDS: chlorhexidine gluconate 0.12% Btl 473 mL 30 ML MUCOUS MEM ×2 (17:48→21:45)
[2020-05-26] MEDS: iron polysaccharide complex 150 mg Capsule PO (17:49)
[2020-05-26] MEDS: sennosides-docusate Tablet 2 TAB PO (17:49)
--- NOTE | 2020-05-26 19:09 | ANE.PACU2 ---
Inpatient post-anesthesia follow up: Airway intact: Yes Vital signs: Temperature 97.4 F Pulse Rate 74 Respiratory Rate 18 Blood Pressure 102/57 Pulse Oximetry 97 Oxygen Delivery Me thod Room Air Oxygen Flow Rate 8 Fraction of Inspir ed Oxygen Hydration adequate: Yes Nausea and vomiting: No Pain level: 2 Mental status: Baseline
[2020-05-26] MEDS: CELEcoxib 200 mg Capsule PO (22:35)
[2020-05-27] VITALS (8 sets, daily range): BP systolic 100–108; BP diastolic 53–68; PULSE 57–92; RESP 17–18; TEMP 36.6–36.7; O2SAT 94–96
[2020-05-27] MEDS: acetaminophen 1,000 MG/100 ML PIGGYBACK 400 MG IV ×2 (02:25→10:32)
[2020-05-27 02:43] LABS: Basophils % 0.3 %; Hematocrit 34.3 % (37.0-47.0); Hemoglobin 11.1 g/dL (11.5-15.3); Lymphocytes % 12.9 %; Mean Corpuscular HGB Conc 32.4 g/dL (30.0-36.0); Mean Corpuscular Hemoglobin 32.4 pg (28.0-34.0); Mean Platelet Volume 10.2 fL (7.4-10.4); Monocytes # 0.5 10^3/uL (0.2-0.9); Neutrophils # 6.18 10^3/uL (1.8-7.7); Neutrophils % 80.4 %; Nucleated Red Blood Cells % 0 %; Platelet Count 186 10^3/cmm (130-400); Red Blood Count 3.43 10^6/uL (4.1-5.3); Red Cell Distribution Width 11.3 % (12.1-15.1); White Blood Count 7.7 10^3/uL (4.0-10.0)
[2020-05-27 03:03] LABS: Anion Gap 15.2 (5-19); Blood Urea Nitrogen 24 mg/dL (6-20); Calcium 8.7 mg/dL (8.5-10.5); Carbon Dioxide 26 mmol/L (22-29); Chloride 98 mmol/L (98-107); Glomerular Filtration Rate 73.4 mL/min (90-130); Glucose 156 mg/dL (65-115); Osmolality Calculated 287 mOsm/kg (285-295); Potassium 4.2 mmol/L (3.5-5.1); Sodium 135 mmol/L (136-145)
[2020-05-27] MEDS: oxyCODONE 5 mg IR Tab/Cap PO ×2 (04:58→10:08)
[2020-05-27] MEDS: multivitamin therapeutic Tablet 1 TAB PO (08:58)
[2020-05-27] MEDS: cholecalciferol (vitamin D3) 1,000 unit Tablet 1000 UNIT PO (08:58)
[2020-05-27] MEDS: calcium carbonate 500 mg Chew Tablet 1000 MG PO (08:58)
[2020-05-27] MEDS: fluoxetine 20 mg Capsule 60 MG PO (08:59)
[2020-05-27] MEDS: levothyroxine 75 mcg Tablet 150 MCG PO (08:59)
[2020-05-27] MEDS: iron polysaccharide complex 150 mg Capsule PO (08:59)
[2020-05-27] MEDS: sennosides-docusate Tablet 2 TAB PO (09:00)
[2020-05-27] MEDS: mupirocin oint 22 gm 1 APPLIC NASAL (09:11)
[2020-05-27] MEDS: aspirin 325 mg EC Tablet PO (09:12)
[2020-05-27] MEDS: chlorhexidine gluconate 0.12% Btl 473 mL 30 ML MUCOUS MEM ×2 (09:12→12:32)
[2020-05-27] MEDS: vancomycin 1,000 MG in sodium chloride 0.9% 250 ML 250 MG IV (09:23)
[2020-05-27] MEDS: lisinopril 20 mg Tablet PO (10:12)
[2020-05-27] MEDS: metoprolol succinate ER (24 HR) 50 mg Tablet 100 MG PO (10:12)
[2020-05-27] MEDS: CELEcoxib 200 mg Capsule PO (11:01)
--- NOTE | 2020-05-27 13:25 | PM.DCS ---
Discharge Providers Date of Admission: 05/26/20 14:03 Date of Discharge: May 27, 2020 Attending Provider at Admission: Stephanie Perez MD Attending Provider at Discharge: Stephanie Perez MD Primary Care Provider: Carolin Small MD Diagnoses at Discharge Discharge Diagnosis (1) Avascular necrosis of bone of left hip: Status: Acute (2) Primary localized osteoarthritis of left hip: Status: Acute Reason for Visit Reason for Visit: left hip avascular necrosis Hospital Course Hospital Course This 60-year-old woman was admitted for same-day surgery. She underwent left total hip arthroplasty yesterday, May 26, 2020. At that time, the patient's diagnosis was severe osteoarthritis and osteonecrosis of the left hip with contracture and large osteophyte formation. The patient underwent the surgery uneventfully. She had a [employer] total hip arthroplasty placed without incident. Postoperatively, the patient was admitted to the floor for postoperative rehabilitation, pain management, and monitoring. She did have some itching after her surgical procedure. This was felt to possibly be related to vancomycin, however, she had not previously had reaction to this medication. On the first postoperative day, the patient was resting in bed, but she was dressed and ready to be discharged. She had no complications. She was neurologically intact. Her wound was benign. There was no evidence of DVT or other complication. Her x-rays were satisfactory. Patient was discharged to home. We have ordered home health for her. She will use aspirin as her anticoagulant. Physical Exam Const: COMMON NORMALS: no acute distress, average body habitus, patient oriented x3 and alert GENERAL APPEARANCE: cooperative and comfortable ORIENTATION/CONSCIOUSNESS: Yes awake HENMT: COMMON NORMALS: normocephalic and atraumatic HEAD & SCALP: normocephalic and atraumatic Eye: GENERAL EYE: appearance normal, both eyes and all related structures Chest: COMMONS NORMALS: normal inspection of the chest Resp: COMMON NORMALS: normal respiratory effort EFFORT & INSPECTION: Yes able to speak in complete sentences and Yes symmetric chest movement Extremity: LEFT LOWER EXTREMITY: Yes hip joint Left hip: Yes inspection (There is minimal to no swelling), Yes palpation (Minimal to no tenderness to palpation), Yes ROM (Not evaluated) and Yes neurovascular exam (Intact with no evidence of DVT) Neuro: COMMON NORMALS: patient oriented x3 SENSORIUM/ORIENTATION: Yes alert Psych: COMMON NORMALS: mental status grossly normal APPEARANCE: Yes grossly normal ATTITUDE: Yes calm and Yes engaged ATTENTION/CONCENTRATION: Yes attention grossly intact Skin: COMMON NORMALS: no rashes or lesions noted GENERAL SKIN EXAM: no rashes or lesions noted Urinary Catheter Management^: F: Cath Placed During This Visit: yes, but has since been removed by the nurse Reason for Continuing Indwelling Catheter: Decision to DC Catheter Urinary Catheter Date of Insertion: 05/26/20 Urinary Catheter Time of Insertion: 11:40 Date Urinary Catheter Removed: 05/27/20 Time Urinary Catheter Discontinued: 06:27 Discharge Data Data Completed and Pending: Completed Studies During Hospitalization Category Date Time Status XR pelvis 1-2V* 7 2170 Routine Exams 05/26/20 14:19 Completed Pending at discharge Category Date Time Status Complete Blood Co unt w/Auto AM LABS Lab 05/28/20 04:00 Ordered Complete Blood Co unt w/Auto AM LABS Lab 05/29/20 04:00 Ordered Labs from last 24 hours 05/27/20 05/27/20 02:31 02:31 WBC 7.7 RBC 3.43 L Hgb 11.1 L Hct 34.3 L MCV 100.0 H MCH 32.4 MCHC 32.4 RDW 11.3 L Plt Count 186 MPV 10.2 Neut % (Auto) 80.4 Lymph % (Auto) 12.9 Bibb % (Auto) 6.0 Eos % (Auto) 0.0 Baso % (Auto) 0.3 Neut # (Auto) 6.18 Lymph # (Auto) 1.0 Bibb # (Auto) 0.5 Eos # (Auto) 0.0 Baso # (Auto) 0.0 Nucleated RBC % (a uto) 0 Nucleated RBCs # 0.0 Sodium 135 L Potassium 4.2 Chloride 98 Carbon Dioxide 26 Anion Gap 15.2 BUN 24 H Creatinine 0.8 GFR Calculation 73.4 L Glucose 156 H Calculated Osmolal ity 287 Calcium 8.7 Procedures Performed: Left total hip arthroplasty Implants: [employer] Accolade II total hip system: The size 54 mm solid back acetabular shell with an E alpha code and an MDM liner size 42 mm inner diameter by E alpha code. An Accolade II size 8 x 127 degree neck angle hip stem, femoral head size 28 mm outer diameter and +0 mm offset inside of an MDM insert size inner diameter 28 mm to match the 42E Vitals: Last Vital Signs Temp 97.9 F 05/27/20 13:04 Pulse 65 05/27/20 13:04 Resp 18 05/27/20 13:04 BP 105/65 05/27/20 13:04 Pulse Ox 96 05/27/20 13:04 Discharge Plan Discharge Patient Disposition: Home Health Service Condition: Stable Prescriptions: New oxycodone 5 mg Tablet 5 mg PO Q4H PRN (Reason: Moderate Pain) 7 Days Qty: 30 RF: 0 aspirin 325 mg Tablet,Delayed Release (Dr/Ec) 325 mg PO BID 30 Days Qty: 60 RF: 0 acetaminophen 500 mg Tablet 1,000 mg PO Q8H 30 Days Qty: 180 RF: 0 Continued multivitamin [Multiple Vitamins] Tablet 1 tab PO DAILY RF: 0 levothyroxine 175 mcg tablet See Rx Instructions .ROUTE .COMPLEX RF: 0 metoprolol succinate 50 mg tablet extended release 24 hr 100 mg PO DAILY RF: 0 lisinopril-hydrochlorothiazide 20-25 mg tablet 1 tab PO DAILY RF: 0 fluoxetine 20 mg capsule 60 mg PO DAILY RF: 0 Mucinex 1 tab PO PRN RF: 0 benzonatate [Tessalon Perles] 100 mg capsule 200 mg PO TID PRN (Reason: cough) Qty: 60 RF: 0 albuterol sulfate 90 mcg/actuation HFA aerosol inhaler 2 inh INHALATION Q4H PRN (Reason: shortness of breath or wheezing) Qty: 6.7 RF: 0 Changed celecoxib [Celebrex] 200 mg capsule 200 mg PO BID 30 Days Qty: 60 RF: 0 Discharge Orders: Discharge Order (Routine); Ordered 05/27/20 Ordered By: Stephanie Perez Other Ambulatory Orders: DME: Walker (Order) Location: None Selected Ordered By: Stephanie Perez Referrals: Stephanie Perez MD [Physician] - 06/10/20 11:45 am Discharge Diet: Advance as tolerated and Usual diet Discharge Activity: Increase activity as tolerated, Limit activity as instructed, Use walker/crutches as instructed and As per PT/OT instructions Activity Restrictions/Additional Instructions: Posterior hip precautions. Follow instruction by PT OT. Gait training, strengthening, and ambulation per PT. Discharge Attestations Time Spent in Discharge Care*: greater than 30 min Specific Discharge Activities: educating patient, documenting/other paperwork and evaluating patient/reviewing data Quality Metrics Clinical Quality Measures During this hospital stay, did patient experience: None Coding Level of Care Code Acute g [facility] note Diagnoses Avascular necrosis of bone of left hip M87.052 Primary localized osteoarthritis of left hip M16.12
--- NOTE | 2020-05-27 14:07 | PC.NURSE ---
Gave patient discharge instructions, all questions answered. Patient states verbal understanding. IV catheter removed, tip intact. Patient discharged at this time in stable condition, in the care of her daughter.
== END 2020-05-27 14:09 | disposition home health service (06) ==
LOC: MEDSURG 14:03
PROVIDERS: Anesthesiology; Admitting Provider Specialist; PCP Family Medicine; Visit Provider Specialist
PROC: (CPT 27130; principal; 2020-05-26 11:00)
DX: M16.12 Unilateral primary osteoarthritis, left hip (principal); M87.052 Idiopathic aseptic necrosis of left femur; J44.9 Chronic obstructive pulmonary disease, unspecified; I10 Essential (primary) hypertension; K21.9 Gastro-esophageal reflux disease without esophagitis
CPT/HCPCS: 27130; 36415; 51702; 72170; 80048; 85025; 96365; 96374; 97116; 97162; 97166; 97530; C1776; G0378; J1100; J2250; J2370; J2405; J2704; J3010; J3370; J3490; J3535; J7030; J7050

== ENCOUNTER → 2020-06-10 11:50 | Outpatient (BNVA) | payer SELFPAY | PROVIDERS: PCP Family Medicine; Visit Provider Specialist | DX: M16.12 Unilateral primary osteoarthritis, left hip (principal); M87.052 Idiopathic aseptic necrosis of left femur; Z96.642 Presence of left artificial hip joint | CPT/HCPCS: 73502 ==

== ENCOUNTER → 2020-07-22 11:03 | Outpatient (BNVA) | payer OTHER, SELFPAY | PROVIDERS: PCP Family Medicine; Visit Provider Specialist | DX: M16.12 Unilateral primary osteoarthritis, left hip (principal); M87.052 Idiopathic aseptic necrosis of left femur | CPT/HCPCS: 73502 ==

== ENCOUNTER → 2021-01-04 10:14 | Outpatient (BNVA) | payer OTHER, SELFPAY | PROVIDERS: PCP Family Medicine; Visit Provider Specialist | DX: Z96.642 Presence of left artificial hip joint; Z47.1 Aftercare following joint replacement surgery | CPT/HCPCS: 73502 ==

== ENCOUNTER → 2021-03-12 13:42 | Outpatient (BNVA) | payer OTHER, SELFPAY | PROVIDERS: PCP Family Medicine; Visit Provider Emergency Medicine | DX: Z20.822 Contact with and (suspected) exposure to COVID-19 (principal) | CPT/HCPCS: 87635 ==

== ENCOUNTER 2021-08-06 08:38 | Outpatient (CLI) | payer BC, MEDICAID, SELFPAY ==
--- NOTE | 2021-08-06 08:53 | MM_ITS ---
WS: [id number] VIEWS: MLO and CC views both breasts. 3D digital tomosynthesis is also included in this exam. Comparison made with prior exam of 01/12/2012, 01/21/2013, 10/06/2014, 10/07/2015, 04/16/2020.. Findings: There was no sign of mass, architectural distortion or suspicious calcification in either breast. Sta ble appearing nodular densities in both breasts.Fatty MM/[place] [id number] Impression: BI-RADS: 2-Benign FOLLOW-UP: 1 Year Follow-up This mammogram was also analyzed by the Computer Aided Detection System R2 Imag e Asphalt Roller Operator.
== END 2021-08-06 08:39 | disposition home or self-care (01) ==
LOC: RAD 08:42
PROVIDERS: PCP Family Medicine; Visit Provider Family Medicine
DX: Z12.39 Encounter for other screening for malignant neoplasm of breast (principal)
CPT/HCPCS: 77063; 77067

== ENCOUNTER 2022-02-27 07:53 | Emergency (ER) | payer OTHER, BC, MEDICAID, SELFPAY ==
[2022-02-27] VITALS (9 sets, daily range): BP systolic 120–182; BP diastolic 82–103; PULSE 80–92; RESP 16–22; TEMP 37.1; O2SAT 94–100
--- NOTE | 2022-02-27 08:16 | XRR_ITS ---
PROCEDURE INFORMATION: Exam: XR Chest Exam date and time: 02/27/2022 8:29 AM Age: 62 years old Clinical indication: Shortness of breath and wheezing; Additional info: SOB TECHNIQUE: Imaging protocol: Radiologic exam of the chest. Views: 1 view. COMPARISON: CR XR chest 1V portable [id number] 02/22/2020 1:37 AM FINDINGS: Lungs: Unremarkable. No consolidation. Pleural spaces: Unremarkable. No pleural effusion. No pneumothorax. Heart/Mediastinum: Unremarkable. No cardiomegaly. Diaphragm: Mild elevation right hemidiaphragm unchanged. Bones/joints: Mild scoliosis thoracic spine convex to the patient's right unchanged. Old healed fracture right mid clavicle, stable. XR/XR chest 1V portable [id number] IMPRESSION: Stable chest. No active disease.
--- NOTE | 2022-02-27 08:17 | W.ED.SOB ---
HPI - SOB/Dyspnea General: Chief Complaint: Shortness of Breath/Dyspnea Stated Complaint: SOB Time Seen by Provider: 02/27/22 08:08 Source: patient Mode of arrival: ambulatory Limitations: no limitations History of Present Illness: HPI Narrative: This patient to presents to our emergency department because of feeling wheezy and cough over the past several days. She states her illness began approximate 3 to 4 days ago. She had congestion drainage sinus pressure and intermittent coughing. He is unaware of any known exposure to infectious disease. She denies chest pain or fevers. She states that she felt more wheezy and felt like she could not catch her breath today despite using her metered-dose inhaler. She does not have a known diagnosis of reactive airway disease or COPD but does have a history of bronchitis in the past and therefore has a metered-dose inhaler. She states she is occasionally required prednisone in the past. She is not a tobacco user. She states that no one in her home is been recently ill. She denies any history of cardiovascular disease but does have a history of hypertension. Associated symptoms: Deny abdominal pain, chest pain, extremity pain, fever(s), nausea, palpitations, syncope or vomiting Treatment prior to arrival: bronchodilator Review of Systems Const: Denies: fever(s) or chills Eyes: Denies: change in vision ENMT: Reports: throat pain, nasal discharge and nasal congestion; Denies: odynophagia or sinus pain Card: Denies: chest pain, palpitations, irregular heart rhythm, syncope or pre-syncope Resp: Reports: dyspnea, non-productive cough and wheezing GI: Denies: abdominal pain, nausea or vomiting : Denies: flank pain, difficulty voiding, dysuria or urinary frequency Musc: Denies: neck pain, back pain, extremity pain or extremity swelling Skin/Breast: Denies: rash Neuro: Denies: headache(s), numbness in extremities or weakness in extremities PFS ED PFSH: Medical History Hypertension Social History Smoking and tobacco status: never smoked Alcohol intake: current Alcohol intake frequency: holidays/special occasions only Physical Exam Narrative: EXAM NARRATIVE: She makes good eye contact appears to be in no acute distress. He answers questions in complete sentences without dyspnea. Const: COMMON NORMALS: no acute distress, average body habitus and patient oriented x3 GENERAL APPEARANCE: cooperative and comfortable ORIENTATION/CONSCIOUSNESS: Yes awake HENMT: COMMON NORMALS: normocephalic, Normal nasal mucous membranes and turbinates present, moist oral mucous membranes and oropharynx normal HEAD & SCALP: normocephalic NOSE: Normal nasal mucous membranes and turbinates present MOUTH: tongue normal Eye: COMMON NORMALS: Equal, round and reactive pupils present, EOMs intact bilaterally and conjunctivae normal CONJUNCTIVA: Yes conjunctivae normal PUPIL: Yes Equal, round and reactive pupils present Neck/C-Spine: COMMON NORMALS: full ROM, no JVD, Thyroid normal and No carotid bruits THYROID: Thyroid normal Chest: COMMONS NORMALS: normal inspection of the chest and normal palpation of entire chest wall Resp: COMMON NORMALS: normal respiratory effort, No retractions and No use of accessory muscles EFFORT & INSPECTION: Yes able to speak in complete sentences AUSCULTATION: wheezes (Mild end expiratory wheezes at the bases.) expiratory wheezes Cardio: COMMON NORMALS: no JVD, regular rate, regular rhythm, No murmurs present (Cardio) and Peripheral pulses 2+ throughout RATE: regular rate RHYTHM: regular rhythm PERIPHERAL PULSES: Peripheral pulses 2+ throughout GI: COMMON NORMALS: Normal to inspection, nondistended, normoactive bowel sounds present Back/Pelvis: COMMON NORMALS: thoracic and lumbar spine normal to inspection, no thoracic nor lumbar tenderness and thoraco-lumbar ROM normal Extremity: COMMON NORMALS: normal to inspection, full ROM, capillary refill normal, no calf tenderness and no pedal edema Neuro: COMMON NORMALS: patient oriented x3, moves all extremities, no focal motor deficits and no sensory deficits noted Psych: COMMON NORMALS: mental status grossly normal Skin: COMMON NORMALS: no rashes or lesions noted, no wounds and turgor normal GENERAL SKIN EXAM: no rashes or lesions noted and turgor normal Course Reevaluation(s): Reevaluation #1: Patient states that after her nebulization treatment she felt like she was having some spasm of her throat or or felt like she was having a little bit of difficulty catching her breath. Reexamination reveals normal voice, no stridor, repeat chest examination reveals very good air movement without accessory muscle usage. Minimal end expiratory wheezes. Time: 09:39 Reevaluation #2: Patient still remained stable with pulse oximetry on 9200% on room air. He is able to converse in complete sentences. She has no audible wheezing. Her family is now here and she is stable and desires to be discharged from the emergency department. No evidence of infection or other conditions of concern. We will go ahead and continue on oral steroids and at the daughter's request we will go ahead and add a steroid inhaler to use as a preventative measure as apparently she gets recurrent bronchospasm. Daughter also plans on getting her evaluated by pulmonology because of recurrent episodes. Stable at this time without any evidence of other ongoing emergency medical conditions. 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 Clinical examination revealed end expiratory wheezes but no stridor or other concerning findings. She responded to beta agonist but still had some apprehension and anxiety which was treated with a single dose of benzodiazepine. She has a lot of mucus drainage which I think also contributes to her symptoms. We discussed expected course, home care in addition to the prescribed medications. He continued to do well during her observation time in the emergency department and was suitable for discharge. No evidence of pneumonia, or other worrisome condition at this time. We also discussed return precautions. Medical Records I reviewed the patient's medical records. Lab Data I reviewed the patient's lab results. Labs/Radiology: Radiology Impressions Chest X-Ray 02/27/22 08:16 IMPRESSION: Stable chest. No active disease. Discharge Plan Discharge Patient Disposition: Home Clinical Impression: Asthma with exacerbation, Upper respiratory infection Condition: Stable Prescriptions: New budesonide 90 mcg/actuation aerosol powdr breath activated 1 inh inhalation BID Qty: 1 0RF prednisone 20 mg tablet 20 mg PO BID 5 Days Qty: 10 0RF Ativan 0.5 mg tablet 0.5 mg PO DAILY Qty: 5 0RF No Action multivitamin [Multiple Vitamins] Tablet 1 tab PO DAILY levothyroxine 175 mcg tablet See Rx Instructions .ROUTE .COMPLEX Rx Instructions: 175mcg po every third day and take 150mcg all other days pt states she had blood work done and thinks this may change metoprolol succinate 50 mg tablet extended release 24 hr 100 mg PO DAILY Rx Instructions: am lisinopril-hydrochlorothiazide 20-25 mg tablet 1 tab PO DAILY Rx Instructions: patient takes 20-12.5 mg bid fluoxetine 20 mg capsule 60 mg PO DAILY Rx Instructions: am albuterol sulfate 90 mcg/actuation HFA aerosol inhaler 2 inh INHALATION Q4H PRN (Reason: shortness of breath or wheezing) Qty: 6.7 0RF Celebrex 200 mg capsule 200 mg PO BID 30 Days Qty: 60 0RF Rx Instructions: am Discharge Orders: Discharge ED (Routine); Ordered 02/27/22 Ordered By: Jens Lincoln Referrals: Carolin Small MD [Primary Care Provider] - Patient Instructions: Opioid Safety, Pain Management Coding Level of Care Code ED Certified [employer] for [employer] Fwd Exam Comprehensive
[2022-02-27] MEDS: albuterol 2.5 mg/3 mL Neb INHALATION (08:28)
[2022-02-27] MEDS: LORazepam 1 mg Tablet PO (09:43)
[2022-02-27] MEDS: dexamethasone 10 mg/mL INJ IM (10:06)
== END 2022-02-27 12:24 | disposition home or self-care (01) ==
PROVIDERS: Emergency Provider Emergency Medicine; PCP Family Medicine
DX: J06.9 Acute upper respiratory infection, unspecified (principal); J45.901 Unspecified asthma with (acute) exacerbation; I10 Essential (primary) hypertension
CPT/HCPCS: 71045; 96372; 99284; J1100; J7613

== ENCOUNTER 2022-12-23 14:29 | Outpatient (CLI) | payer BC, MEDICAID, SELFPAY ==
--- NOTE | 2022-12-23 14:36 | MM_ITS ---
WS: [id number] BILATERAL 3D TOMOSYNTHESIS DIGITAL SCREENING MAMMOGRAPHY WITH CAD CLINICAL INFORMATION: SCREENING HISTORY: Screening mammogram. No current complaints. COMPARISON: 08/06/2021 TECHNIQUE: Bilateral CC and MLO views. FINDINGS: Scattered fibroglandular densities bilaterally. No suspicious focal mass, asymmetry, calcifications, or architectural distortion. No evidence of malignancy. Stable ovoid nodule near the 12 o'clock posit ion RIGHT breast. IMPRESSION: MM/[place] [id number] BI-RADS: 2-Benign FOLLOW UP: 1 Year Follow-up Recommend return to annual screening mammography.
== END 2022-12-23 14:30 | disposition home or self-care (01) ==
LOC: RAD 14:30
PROVIDERS: PCP Family Medicine; Visit Provider Family Medicine
DX: Z12.31 Encounter for screening mammogram for malignant neoplasm of breast (principal)
CPT/HCPCS: 77063; 77067

== ENCOUNTER 2024-08-06 09:03 | Outpatient (CLI) | payer OTHER, SELFPAY ==
--- NOTE | 2024-08-06 | MM_ITS ---
WS: [id number] BILATERAL 3D TOMOSYNTHESIS DIGITAL SCREENING MAMMOGRAPHY WITH CAD CLINICAL INFORMATION: ANNUAL SCREENING HISTORY: Screening mammogram. No current complaints. COMPARISON: 2022 TECHNIQUE: Bilateral CC and MLO views. FINDINGS: Scattered fibroglandular densities bilaterally. No suspicious focal mass, asymmetry, calcifications, or architectural distortion. No evidence of malignancy. Stable ovoid nodule upper outer RIGHT breast. MM/MM scr BI tomosynthesis [id number] IMPRESSION: DENSITY: There are scattered areas of fibroglandular density. BI-RADS: 2 - Benign. FOLLOW UP: 1 Year Follow-up Recommend return to annual screening mammography.
== END 2024-08-06 09:04 | disposition home or self-care (01) ==
PROVIDERS: PCP Family Medicine; Visit Provider Family Medicine
DX: Z12.31 Encounter for screening mammogram for malignant neoplasm of breast (principal); R92.323 Mammographic fibroglandular density, bilateral breasts; N63.11 Unspecified lump in the right breast, upper outer quadrant
CPT/HCPCS: 77063; 77067